=== PATIENT | female | born 1960 | race Caucasian/White ===

== ENCOUNTER 2017-05-30 11:48 | Emergency (ER) | payer BC ==
--- NOTE | 2017-05-30 12:59 | UC ---
Eye Complaint HPI - HPI Summary HPI Summary: ONE DAY OF CRUSTY YELLOW DISCHARGE AND BILATERAL EYE REDNESS. TWO DAYS AGO WAS WITH GRAND DAUGHTER AND GRANDDAUGHTER MADE UP HER FACE WITH TOY MAKEUP, INCLUDING EYES. NO FEVER. NO SINUS PRESSURE. NO CONGESTION. - History of Current Complaint Chief Complaint: UCEye Stated Complaint: conjunctivitus Time Seen by Provider: 05/30/17 12:11 Hx Obtained From: Patient Hx Last Menstrual Period: UTERINE ABLATION Onset/Duration: Gradual Onset, Lasting Hours, Still Present Timing: Days Severity Initially: Moderate Severity Currently: Moderate Pain Intensity: 0 Location of Injury: Conjunctiva Alleviating Factor(s): Nothing Associated Signs And Symptoms: Positive: Drainage (Purulent). Negative: Photophobia, Drainage (Clear), Vision Impairment Right, Vision Impairment Left - Risk Factors Acute Glaucoma Risk Factors: Negative Optic Artery Occlusion Risk Factors: Negative - Allergies/Home Medications Allergies/Adverse Reactions: Allergies Allergy/AdvReac Type Severity Reaction Status Date / Time Cephalexin Allergy Severe Hives Verified 05/30/17 12:14 Erythromycin Allergy Severe Hives Verified 05/30/17 12:14 Penicillins Allergy Severe Hives Verified 05/30/17 12:14 Sulfamethoxazole Allergy Severe Hives Verified 05/30/17 12:14 w/Trimethoprim [From Bactrim] CI Pigment Blue 63 Allergy See Comment Verified 05/30/17 12:14 [From Cymbalta] Duloxetine [From Cymbalta] Allergy See Comment Verified 05/30/17 12:14 Tetracycline Allergy Hives Verified 05/30/17 12:14 Home Medications: Home Medications Naproxen Sodium [Naproxen Sodium 220 mg] 440 mg PO QAM 05/30/17 [History Confirmed 05/30/17] PMH/Surg Hx/FS Hx/Imm Hx Previously Healthy: Yes - Surgical History Surgical History: Yes Surgery Procedure, Year, and Place: Uterine Ablation; Cholecystectomy, 1983, [place] - Social History Occupation: Retired Lives: With Family Alcohol Use: Rare Substance Use Type: None Smoking Status (MU): Never Smoked Tobacco Review of Systems Constitutional: Negative Skin: Negative Eyes: Eye Redness ENT: Negative Respiratory: Negative Cardiovascular: Negative Gastrointestinal: Negative Genitourinary: Negative Motor: Negative Neurovascular: Negative Musculoskeletal: Negative Neurological: Negative Psychological: Negative All Other Systems Reviewed And Are Negative: Yes Physical Exam Triage Information Reviewed: Yes Appearance: Well-Appearing, No Pain Distress, Well-Nourished Vital Signs: Initial Vital Signs Temp 97.9 F 05/30/17 12:11 Pulse 86 05/30/17 12:11 Resp 16 05/30/17 12:11 Pulse Ox 96 05/30/17 12:11 Vital Signs Reviewed: Yes Eyes: Positive: Conjunctiva Inflamed, Discharge ENT Exam: Normal ENT: Positive: Normal ENT inspection, Hearing grossly normal, TMs normal Dental Exam: Normal Neck exam: Normal Neck: Positive: Supple, Nontender, No Lymphadenopathy Respiratory Exam: Normal Respiratory: Positive: Chest non-tender, Lungs clear, Normal breath sounds, No respiratory distress Cardiovascular Exam: Normal Cardiovascular: Positive: RRR, No Murmur Abdominal Exam: Normal Musculoskeletal Exam: Normal Musculoskeletal: Positive: Strength Intact, ROM Intact Neurological Exam: Normal Psychological Exam: Normal Skin Exam: Normal Eye Complaint Course/Dx - Differential Dx/Diagnosis Differential Diagnosis/HQI/PQRI: Conjunctivitis, Corneal Abrasion Provider Diagnoses: BILATERAL CONJUNCTIVITIS Discharge - Discharge Plan Condition: Stable Disposition: HOME Prescriptions: Ciprofloxacin 0.3% OPTH.BRODERICK* [Cipro 0.3% Opth*] 2 drop BOTH EYES Q4H #1 btl Patient Education Materials: Conjunctivitis (ED) Referrals: Sobia SILVEIRA,Jenni Menjivar [Primary Care Provider] -
== END 2017-05-30 12:34 | disposition home or self-care (01) ==
LOC: UCCORT 11:48
DX: H10.33 Unspecified acute conjunctivitis, bilateral (principal); Z88.1 Allergy status to other antibiotic agents; Z88.0 Allergy status to penicillin; Z88.2 Allergy status to sulfonamides; Z90.49 Acquired absence of other specified parts of digestive tract
CPT/HCPCS: 99212; G0463

== ENCOUNTER 2018-05-13 13:39 | Emergency (ER) | payer BC ==
[2018-05-13 14:21] VITALS: BP 133/77
--- NOTE | 2018-05-13 14:58 | UC ---
Back Pain HPI - HPI Summary HPI Summary: The patient is a 58-year-old female that awoke yesterday morning with lower back pain. The pain is primarily her left lower back and radiates down the left posterior thigh to the knee. She has no pain below the knee however her left anterior brannon feels numb. She has no bowel or bladder problems. She has no history of cancer. She has no UTI symptoms. Her chills. She does have a history of degenerative joint disease. She denies ever having any back problems like this in the past. - History of Current Complaint Chief Complaint: UCBackPain Stated Complaint: BACK PAIN Time Seen by Provider: 05/13/18 14:30 Hx Obtained From: Patient Hx Last Menstrual Period: UTERINE ABLATION Onset/Duration: Sudden Onset - awoke with pain Timing: Constant Severity Initially: Moderate Severity Currently: Severe Pain Intensity: 9 Pain Scale Used: 0-10 Numeric Back Pain: Is Discrete @ - see image, Radiates To - see image Character: Dull, Aching Aggravating Factor(s): Movement Alleviating Factor(s): Rest Associated Signs And Symptoms: Positive: Numbness Full Body (No Head): 1 - pain starts here 2 - radiates here 3 - numb here - Allergies/Home Medications Allergies/Adverse Reactions: Allergies Allergy/AdvReac Type Severity Reaction Status Date / Time cephalexin Allergy Severe Hives Verified 05/13/18 14:11 erythromycin base Allergy Severe Hives Verified 05/13/18 14:11 Penicillins Allergy Severe Hives Verified 05/13/18 14:11 sulfamethoxazole Allergy Severe Hives Verified 05/13/18 14:11 [From Bactrim] trimethoprim [From Bactrim] Allergy Severe Hives Verified 05/13/18 14:11 duloxetine [From Cymbalta] Allergy See Comment Verified 05/13/18 14:11 tetracycline Allergy Hives Verified 05/13/18 14:11 Home Medications: Home Medications Aspirin EC TAB* [Ecotrin EC Low Dose 81 MG*] 1 tab DAILY 05/13/18 [History Confirmed 05/13/18] PMH/Surg Hx/FS Hx/Imm Hx Previously Healthy: Yes Cardiovascular History: Hypertension Psychological History: Anxiety, Depression - Surgical History Surgical History: Yes Surgery Procedure, Year, and Place: Uterine Ablation; Cholecystectomy, 1984, [place] - Family History Known Family History: Positive: Hypertension - Social History Alcohol Use: Rare Substance Use Type: None Smoking Status (MU): Never Smoked Tobacco Review of Systems Constitutional: Negative Skin: Negative Eyes: Negative ENT: Negative Respiratory: Negative Cardiovascular: Negative Gastrointestinal: Negative Genitourinary: Negative Motor: Negative Neurovascular: Negative Musculoskeletal: Myalgia Neurological: Numbness Psychological: Negative Is Patient Immunocompromised?: No All Other Systems Reviewed And Are Negative: Yes Physical Exam Triage Information Reviewed: Yes Appearance: Well-Appearing, No Pain Distress, Well-Nourished Vital Signs: Initial Vital Signs Temp 98.3 F 05/13/18 14:14 Pulse 95 05/13/18 14:14 Resp 22 05/13/18 14:14 BP 133/77 05/13/18 14:14 Pulse Ox 97 05/13/18 14:14 Vital Signs Reviewed: Yes Eyes: Positive: Conjunctiva Clear ENT: Positive: Hearing grossly normal. Negative: Nasal congestion, Nasal drainage, Trismus, Muffled voice, Hoarse voice Neck: Positive: Supple, Nontender Respiratory: Positive: Lungs clear, Normal breath sounds, No respiratory distress, No accessory muscle use Cardiovascular: Positive: RRR, No Murmur Musculoskeletal: Positive: ROM Intact, No Edema Neurological: Positive: Alert, Other: - no midline afia tenderness, -SLR, DTRs egual and brisk, slow wide based gait Psychological Exam: Normal Skin Exam: Normal Diagnostics - Radiology No standard instances Xray Interpretation: Positive (See Comments) - Spondylolisthesis Radiology Interpretation Completed By: ED Physician Back Pain Course/Dx - Course Course Of Treatment: I STOP ref [id number] - Differential Dx/Diagnosis Provider Diagnoses: acute left sciatica. Spondylolisthesis Discharge - Sign-Out/Discharge Documenting (check all that apply): Patient Departure - Discharge Plan Condition: Stable Disposition: HOME Prescriptions: Cyclobenzaprine TAB* [Flexeril TAB*] 5 - 10 mg PO TID PRN #15 tab PRN Reason: Spasms oxyCODONE/Acetamin 5/325 MG* [Percocet 5/325 TAB*] 1 tab PO Q4H PRN #12 tab MDD 4 PRN Reason: Pain Patient Education Materials: Sciatica (ED) Referrals: Sobia SILVEIRA,Jenni Menjivar [Primary Care Provider] - As Soon As Possible Additional Instructions: We are having trouble with our XR computer call results tomorrow if you don't hear from use later tonight continue ibuproben 600-800 mg 4x day with food You may need an MRI this should be ordered through your MD to ER for new or worsening symptoms - Billing Disposition and Condition Condition: STABLE Disposition: Home
--- NOTE | 2018-05-13 15:53 | RAD ---
INDICATION: Low back pain with left sciatica. COMPARISON: There are no prior studies available for comparison. TECHNIQUE: 5 views of the lumbar spine were obtained including lateral, oblique, AP and a coned-down lateral view of the lumbar sacral junction. FINDINGS: There is anterior subluxation of L5 relative to S1 of approximately 1.2 cm consistent with grade II anterior spondylolisthesis. There is bilateral spondylolysis at the L5 level. No other fractures are seen. There is moderate to severe degenerative disc disease at the L5-S1 level. IMPRESSION: 1. 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 2. MODERATE TO SEVERE DEGENERATIVE DISC DISEASE AT THE L5-S1 LEVEL.
== END 2018-05-13 16:00 | disposition home or self-care (01) ==
LOC: UCCORT 13:39
DX: M54.32 Sciatica, left side (principal); M43.10 Spondylolisthesis, site unspecified
CPT/HCPCS: 72110; 81003; 99212; G0463

== ENCOUNTER 2024-03-03 09:00 | Inpatient (IN) ==
[~2024-03-03 09:00] MED LIST: NS 0.45% 1000 ml BAG 1,000 ML IV SCH; Naloxone 0.4 mg VIAL 0.4 mg/ml 1 ml VIAL IV PRN; Ondansetron 4 mg VIAL 2 MG/ML 2 ml VIAL IV PRN
[2024-03-03] MEDS ORDERED: fentaNYL 100 mcg/2 ml 50 MCG/ML VIAL ONE ×6 (10:43→17:00)
[2024-03-03] MEDS ORDERED: Midazolam 2 mg/2 ml VIAL 1 mg/ml 2 ml VIAL (2 mg) ONE ×3 (10:43→12:58)
[2024-03-03] MEDS ORDERED: Lidocaine 2% PF 5 ML VIAL ONE (10:43)
[2024-03-03] MEDS ORDERED: ceFAZolin 2 GM PREMIX 2 GM/50 ML BAG ONE (11:20)
[2024-03-03] MEDS ORDERED: Tranexamic Acid 1 GM/100ML BAG 2,000 MG/200 ML BAG IV ONE (11:20)
[2024-03-03 11:28] LABS: Rapid COVID-19 Molecular Undetected (Undetected)
[2024-03-03] MEDS ORDERED: ROPIVACAINE 5 MG/ML 30 ML BTL (0.5%) ONE ×2 (12:58→13:17)
[2024-03-03] MEDS ORDERED: Famotidine IV 10 MG/ML 2 ml VIAL (20 mg) ONE (13:23)
[2024-03-03] MEDS ORDERED: Rocuronium 50 mg VIAL 10 mg/ml 5 ml VIAL (50 mg) ONE (13:29)
[2024-03-03] MEDS ORDERED: Acetaminophen IV 1 GM/100ML 1,000 MG/100 ML BAG IV ONE (15:05)
[2024-03-03] MEDS ORDERED: Ondansetron 4 mg VIAL 2 MG/ML 2 ml VIAL IV PRN (16:49)
[2024-03-03] MEDS ORDERED: Magnesium Hydroxide LIQ 30 ML UDC PO PRN (16:49)
[2024-03-03] MEDS ORDERED: Calcium Carb (TUMS) 500 mg CHEW TAB PO PRN (16:49)
[2024-03-03] MEDS ORDERED: Ondansetron ODT 4 mg TAB 4 MG TAB PO PRN (16:49)
[2024-03-03] MEDS ORDERED: Lactulose 30 ml UDC PO PRN (16:49)
[2024-03-03] MEDS: fentaNYL 100 mcg/2 ml 50 MCG/ML VIAL IV PRN (17:02)
[2024-03-03] MEDS: Lactated Ringers 1000 ml BAG 1,000 ML IV SCH ×2 (19:01→19:55)
[2024-03-03] MEDS: Morphine 2 MG/ML SYRINGE IV PRN (20:01)
[2024-03-03] MEDS: Magnesium Hydroxide LIQ 30 ML UDC PO SCH (20:01)
[2024-03-03] MEDS: Acetaminophen IV 1 GM/100ML 1,000 MG/100 ML BAG IV ONE (20:52)
[2024-03-03] MEDS: Buffered Lidocaine 1% SYRIN 1 ml INTRADERM ONE (20:52)
[2024-03-03] MEDS: ceFAZolin 2 GM in NS PREMIX 2 GM/100 ML BAG IVPB SCH (22:20)
[2024-03-04 06:06] LABS: Hematocrit 32.8 % (35-45); Mean Platelet Volume 9.5 fL (7.5-11.2); Platelet Count 270 10^3/uL (150-450)
[2024-03-04 06:23] LABS: Calcium 8.4 mg/dL (8.6-10.3); Creatinine, Serum 0.94 mg/dL (0.51-0.95); Potassium 4.2 mmol/L (3.5-5.0); eGFR CKD-EPI 67.3 (>60)
[2024-03-04] MEDS: Vitamin THERAPEUTIC TAB PO SCH (08:39)
[2024-03-04 10:12] VITALS: BP 98/50
== END 2024-03-04 14:20 | disposition home or self-care (01) | DRG 470 ==
LOC: AA 10:10 → SSU 18:04
PROVIDERS: ADMIT Orthopaedic Surgery Adult Reconstructive Orthopaedic Surgery; ATTEND Orthopaedic Surgery Adult Reconstructive Orthopaedic Surgery

== ENCOUNTER 2024-07-28 11:03 | Observation (INO) ==
[~2024-07-28 11:03] MED LIST changes: +Lidocaine 2% PF 5 ML VIAL ONE; +Metoclopramide 5 MG/ML VIAL (10 mg) IV PRN; -Ondansetron 4 mg VIAL 2 MG/ML 2 ml VIAL IV PRN
[2024-07-28] MEDS ORDERED: Tranexamic Acid 1 GM/100ML BAG 2,000 MG/200 ML BAG IV ONE (11:19)
[2024-07-28] MEDS ORDERED: Scopolamine 1 mg/72hr PATCH ONE (11:19)
[2024-07-28] MEDS ORDERED: ceFAZolin 2 GM PREMIX 2 GM/50 ML BAG ONE (11:19)
[2024-07-28] MEDS ORDERED: Ondansetron 4 mg VIAL 2 MG/ML 2 ml VIAL ONE ×2 (11:46→18:16)
[2024-07-28] MEDS ORDERED: Dexamethasone IV 4 MG/ML VIAL 1 ml VIAL ONE ×2 (11:46→13:41)
[2024-07-28] MEDS: Scopolamine 1 mg/72hr PATCH TRANSDERM ONE (11:51)
[2024-07-28] MEDS: Lactated Ringers 1000 ml BAG 1,000 ML IV SCH ×2 (11:51→21:00)
[2024-07-28] MEDS: Acetaminophen IV 1 GM/100ML 1,000 MG/100 ML BAG IV ONE (11:52)
[2024-07-28] MEDS: Buffered Lidocaine 1% SYRIN 1 ml INTRADERM ONE (11:52)
[2024-07-28 11:54] LABS: Rapid COVID-19 Molecular Undetected (Undetected)
[2024-07-28] MEDS ORDERED: Midazolam 2 mg/2 ml VIAL 1 mg/ml 2 ml VIAL (2 mg) ONE ×3 (13:41→14:06)
[2024-07-28] MEDS ORDERED: ROPIVACAINE 5 MG/ML 30 ML BTL (0.5%) ONE ×2 (13:41→15:00)
[2024-07-28] MEDS ORDERED: fentaNYL 250 mcg/5 ml 50 MCG/ML 5 ml VIAL (250 MCG) ONE (13:45)
[2024-07-28] MEDS ORDERED: Rocuronium 50 mg VIAL 10 mg/ml 5 ml VIAL (50 mg) ONE (13:49)
[2024-07-28] MEDS ORDERED: fentaNYL 100 mcg/2 ml 50 MCG/ML VIAL ONE ×4 (15:28→17:56)
[2024-07-28] MEDS ORDERED: HYDROmorphone 0.5 MG/0.5 ML SYRINGE ONE ×2 (15:38→18:10)
[2024-07-28] MEDS ORDERED: Magnesium Hydroxide LIQ 30 ML UDC PO PRN (15:50)
[2024-07-28] MEDS ORDERED: Ondansetron 4 mg VIAL 2 MG/ML 2 ml VIAL IV PRN (15:50)
[2024-07-28] MEDS ORDERED: Calcium Carb (TUMS) 500 mg CHEW TAB PO PRN (15:50)
[2024-07-28] MEDS ORDERED: Ondansetron ODT 4 mg TAB 4 MG TAB PO PRN (15:50)
[2024-07-28] MEDS ORDERED: Lactulose 30 ml UDC PO PRN (15:50)
[2024-07-28] MEDS: fentaNYL 100 mcg/2 ml 50 MCG/ML VIAL IV PRN (17:28)
[2024-07-28] MEDS ORDERED: HYDROmorphone 1 MG/1 ML SYRINGE ONE (18:07)
[2024-07-28] MEDS: HYDROmorphone 0.5 MG/0.5 ML SYRINGE IV SLOW PU ONE (18:13)
[2024-07-28] MEDS: Ondansetron 4 mg VIAL 2 MG/ML 2 ml VIAL IV PRN (18:16)
[2024-07-28] MEDS: Magnesium Hydroxide LIQ 30 ML UDC PO SCH (21:36)
[2024-07-28] MEDS: ceFAZolin 2 GM PREMIX 2 GM/50 ML BAG IV SCH (22:46)
[2024-07-28] MEDS: hydrALAZINE 20 mg/ml 1 ML Vial IV IV SLOW PU ONE (23:59)
[2024-07-29] MEDS: Morphine 2 MG/ML SYRINGE IV PRN (02:07)
[2024-07-29 06:27] LABS: Hematocrit 32.1 % (35-45); Hemoglobin 11.2 g/dL (11.5-14.3); Mean Platelet Volume 9.2 fL (7.5-11.2); Platelet Count 288 10^3/uL (150-450)
[2024-07-29 07:35] LABS: Calcium 8.5 mg/dL (8.6-10.3); Creatinine, Serum 1.08 mg/dL (0.51-0.95); Potassium 3.9 mmol/L (3.5-5.0)
[2024-07-29] MEDS: Vitamin THERAPEUTIC TAB PO SCH (08:20)
[2024-07-29 14:04] VITALS: BP 108/68
== END 2024-07-29 16:15 | disposition home or self-care (01) ==
LOC: SSU 11:03 → OR 11:03
PROVIDERS: ADMIT Orthopaedic Surgery Adult Reconstructive Orthopaedic Surgery; ATTEND Orthopaedic Surgery Adult Reconstructive Orthopaedic Surgery